=== PATIENT | male | born 1995 | race Caucasian/White ===

== ENCOUNTER 2018-05-29 14:35 | Inpatient (IN) | payer OTHER ==
[~2018-05-29] VITALS: Ht 188 cm; Wt 73.3 kg
[2018-05-29 14:56] VITALS: BP 131/64
[2018-05-29] MEDS ORDERED: HYDROXYZINE HCL10 M1 PO (14:58)
[2018-05-29] MEDS ORDERED: ZANTAC 150MG T150 MG PO (14:58)
[2018-05-29 15:00] LABS: URINE BILIRUBIN NEGATIVE (Negative); URINE BLOOD NEGATIVE (Negative); URINE CLARITY CLEAR; URINE COLOR YELLOW; URINE GLUCOSE-RANDOM NEGATIVE (Negative); URINE KETONES NEGATIVE (Negative); URINE LEUKOCYTES-REFLEX NEGATIVE (Negative); URINE NITRITE-REFLEX NEGATIVE (Negative); URINE PROTEIN NEGATIVE (Negative); URINE UROBILINOGEN 0.2 E.U./dl (0.2-1.0)
[2018-05-29 15:04] LABS: ABSOLUTE EOSINOPHILS 0.1 thou/uL (0.0-0.7); ABSOLUTE LYMPHOCYTES 1.4 thou/uL (0.8-5.3); ABSOLUTE MONOCYTES 0.6 thou/uL (0.0-1.2); ABSOLUTE NEUTROPHILS 8.1 thou/uL (1.6-8.1); BASOPHILS 0.4 %; EOSINOPHILS 0.7 %; HEMATOCRIT 48.9 % (42.0-52.0); HEMOGLOBIN 16.9 gm/dL (14.0-18.0); LYMPHOCYTES 13.8 %; MCH 28.3 pg (26.0-34.0); MCHC 34.6 g/dL (28.0-37.0); MCV 81.8 fL (80.0-100.0); MONOCYTES 5.6 %; MPV 8.7 fl. (7.2-11.1); NUCLEATED RBCS 0 /100WBC; PLATELET COUNT* 136 thou/uL (150-400); POLYS 79.5 %; RBC 5.98 mil/uL (4.50-6.00); RDW-CV 13.2 % (10.5-14.5); WBC 10.2 thou/uL (4.0-11.0)
[2018-05-29 15:12] LABS: CALCIUM 8.4 mg/dL (8.5-10.1); CREATININE 0.9 mg/dL (0.6-1.3); POTASSIUM 3.4 mmol/L (3.5-5.1)
[2018-05-29 15:17] LABS: ALBUMIN 4.4 g/dL (3.4-5.0); TOTAL BILIRUBIN 1.3 mg/dL (<0.1-1.0); TOTAL PROTEIN 7.8 g/dL (6.4-8.2)
[2018-05-29 19:00] VITALS: BP 127/66
[2018-05-30] VITALS: BP 122/54
[2018-05-30 04:00] VITALS: BP 111/44
[2018-05-30 08:14] VITALS: BP 107/52
[2018-05-30 11:16] VITALS: BP 107/52
[2018-05-30 12:00] VITALS: BP 112/38
[2018-05-30 19:40] VITALS: BP 125/72
[2018-05-31 04:00] VITALS: BP 96/54
[2018-05-31 07:53] VITALS: BP 116/65
[2018-05-31 10:27] VITALS: BP 116/65
[2018-05-31 10:28] VITALS: BP 116/65
[2018-05-31] MEDS ORDERED: LEVAQUIN 750 M750 MG PO (10:51)
[2018-05-31] MEDS ORDERED: ONDANSETRON HCL4 M2 PO (10:52)
[2018-05-31] MEDS ORDERED: TYLENOL325 MG PO (10:52)
--- NOTE | 2018-05-31 16:57 | EKG ---
[place] [address] ELECTROCARDIOGRAM REPORT Name: GILMAR FERREIRA Room: [address] IN [facility]#: [id number] Admission: 05/29/18 Attend Phys: Clay Gomez Discharge: 05/31/18 Date of : [birth year] Report #: [id number] THIS REPORT FOR: //name// [facility] ED Test Date: 2018-05-29 Test Time: 19:13:43 Pat Name: GILMAR FERREIRA Department: Room: [facility] Gender: M Bobj Developer: : 1995 Requested By: Jasen Horton Order Number: [id number] MD: Gilmar Ny Measurements Intervals [place] Rate: 56 P: 64 MD: 140 QRS: 111 QRSD: 109 T: 54 QT: 445 QTc: 430 Interpretive Statements Sinus rhythm Incomplete right bundle-branch block No previous ECG available for comparison Electronically Signed On 05-31-2018 16:57:07 CDT by Gilmar Ny [email or web address] <ELECTRONICALLY SIGNED> By: Gilmar Ny MD, [facility] 05/31/18 1657 12 12 Gilmar Ny MD, FACC /EPI
--- NOTE | 2018-06-03 11:09 | PATH ---
[address] [address] PATHOLOGY RPT PROCEDURE Name: GILMAR BOLES Room: [address] IN .R.#: [id number] Admission: 05/29/18 Date of : [birth year] Discharge: 05/31/18 Report #: [id number] Path Case #: [id number] [facility] Accession Number: [id number] . 01 Material submitted: . APPENDIX . 01 Clinical history: . Acute appendicitis . 02 Diagnosis: Appendix: - Acute appendicitis, periappendicitis and serositis (BRADLY:at;06/02/2018) QTA/06/03/2018 . 02 Electronically signed: . Magdi Garza MD, Pathologist NPI- [id number] . 01 Gross description: . The specimen is received in formalin, labeled "Gilmar Boles, appendix" and consists of an appendix measuring 7.4 cm in length and ranging from 0.5-0.8 cm in diameter with a small amount of mesoappendix measuring 2.5 x 0.5 cm. The serosa is mckee-dhillon and dusky with creeping adhesions/fat. Sectioning reveals a pinpoint to dilated lumen containing brown fecal material and no discrete fecaliths. Bead Supervisor sections are submitted in A1. (SDY; 06/01/2018) SYU/SYU . 02 Pathologist provided ICD-10: K35.80 . 02 CPT . 168703 Specimen Comment: A courtesy copy of this report has been sent to Specimen Comment: [phone], . Specimen Comment: Report sent to / DR POWELL Performed at: [facility] [address], [place], [place] [id number] MD Michael Starks MD Phone: [phone] Performed at: [address] [address] [place], [place] [id number] MD Magdi Garza MD Phone: [phone]
--- NOTE | 2018-06-05 09:32 | EEG ---
[address] [address] EEG STUDY REPORT Name: MORAIMA FERREIRA Room: [address] IN M.R.#: [id number] Admission: 05/29/18 Attend Phys: Clay Gomez Discharge: 05/31/18 Date of : [birth year] Report #: [id number] THIS REPORT FOR: //name// CC: ANAHY physician/PCP Anup [place] DATE OF SERVICE: 05/30/2018 This patient is being evaluated for an episode of syncope. EEG was done by placing the electrode by standard 10-20 system of electrode placement. Both referential and sequential montages were used for recording. The patient's background activity is about 10-11 Hz and 40 microvolts. The patient went to sleep that is associated with bilaterally symmetrical sleep spindle and vertex sharp waves. Photic stimulation is unremarkable. Throughout the record, no active epileptiform activity was noticed. IMPRESSION: This patient's EEG is within normal limit. Thank you very much for this referral. <ELECTRONICALLY SIGNED> By: Tom Mcarthur MD 06/05/18 0932 1145 1218Tom Mcarthur MD /nt
--- NOTE | 2018-07-02 15:37 | OP ---
[address] [address] OPERATIVE REPORT Name: MORAIMA FERREIRA Room: [address] IN .R.#: [id number] Admission: 05/29/18 Attend Phys: Clay Gomez Discharge: 05/31/18 Date of : [birth year] Report #: [id number] THIS REPORT FOR: //name// CC: ANAHY physician/PCP Anup [place] DATE OF SERVICE: 05/30/2018 PREOPERATIVE DIAGNOSIS: Acute appendicitis. POSTOPERATIVE DIAGNOSIS: Acute appendicitis. OPERATIVE PROCEDURE: Laparoscopic appendectomy. OPERATING SURGEON: Ede Mancuso MD. INDICATIONS FOR THE PROCEDURE: The patient is a 23-year-old male who presented with complaints of 1-day history of right lower quadrant pain that is benign. Clinical exam and CT scan showed features of acute appendicitis. The patient was advised laparoscopic appendectomy. The patient showed understanding and agreed to proceed. DESCRIPTION OF PROCEDURE: After explaining to the patient in detail, an informed consent was obtained. The patient was identified in the preoperative holding area. The patient was transferred to the operating room and was placed in supine position. Sequential compression devices were placed for DVT prophylaxis. Preoperative antibiotics were given. After induction of anesthesia, the abdomen was prepped and draped in a sterile fashion. Through a left upper quadrant stab incision and using a Veress needle technique, pneumoperitoneum was created. Thereafter, using Optiview technique through a left lower quadrant incision, a 5-mm trocar was introduced. A 12-mm trocar was placed through a supraumbilical incision and another 5-mm trocar was placed through a suprapubic incision approximately about 3 cm above the pubic symphisis On initial inspection, the patient was noted to have an inflamed appendix. The mesoappendix was divided. The appendicular artery was coagulated using cautery. Two Endoloops were then placed at the base of the appendix and 1 was placed distally. Appendix was then divided and was retrieved using an EndoCatch through the lateral most incision. Thorough saline irrigation was given. Absolute hemostasis was ensured. The appendix was then retrieved using an EndoCatch. The umbilical incision was closed in 2 layers using 0 Vicryl for the fascia. Skin was closed with 4-0 Monocryl for the incision. Dermabond was applied. The patient was stable at the end of the procedure, the patient was awoken from anesthesia and was transferred to the [place] [address] OPERATIVE REPORT Name: MORAIMA FERREIRA Room: [address]#: [id number] Admission: 05/29/18 Attend Phys: Clay Gomez Discharge: 05/31/18 Date of : [birth year] Report #: [id number] ESTIMATED BLOOD LOSS: Minimal. CONDITION: The patient is stable. FLUIDS: Given per Anesthesia note. SPECIMEN SENT: Appendix. COMPLICATIONS: None. ANESTHESIA: General anesthesia. <ELECTRONICALLY SIGNED> By: Ede Mancuso MD 07/02/18 1537 1716 1920Sigloria Mancuso MD /nt
== END 2018-05-31 12:06 | disposition home or self-care (01) | DRG 343 ==
LOC: M.ERS 14:35 → M.ORTHSURG 16:49 → M.TBA-ER 16:49 → M.2W 16:49 → M.ORTHSURG 19:00 → M.2W 21:16
PROVIDERS: Nurse Practitioner Family; ADMIT Internal Medicine
PROC: 0DTJ4ZZ Resection of Appendix, Percutaneous Endoscopic Approach (ICD-10-PCS; principal; 2018-05-30)
DX: K35.80 Unspecified acute appendicitis (principal); E87.6 Hypokalemia; R63.0 Anorexia; R55 Syncope and collapse; Z79.2 Long term (current) use of antibiotics; Z79.899 Other long term (current) drug therapy; Z88.1 Allergy status to other antibiotic agents; Z68.20 Body mass index [BMI] 20.0-20.9, adult

== ENCOUNTER 2019-08-06 15:30 | Emergency (ER) | payer OTHER ==
[~2019-08-06] VITALS: Ht 188 cm; Wt 72.1 kg
[~2019-08-06 15:30] MED LIST: HYDROXYZINE HCL10 M1 PO; LEVAQUIN 750 M750 MG PO; ONDANSETRON HCL4 M2 PO; TYLENOL325 MG PO; ZANTAC 150MG T150 MG PO
[2019-08-06] MEDS ORDERED: VENLAFAXINE H37.5 MG PO (15:43)
[2019-08-06] MEDS ORDERED: CARAFATE 1 GM TA1 G1 PO (15:43)
[2019-08-06 16:15] LABS: URINE BILIRUBIN NEGATIVE (Negative); URINE BLOOD NEGATIVE (Negative); URINE CLARITY CLEAR; URINE COLOR YELLOW; URINE GLUCOSE-RANDOM NEGATIVE (Negative); URINE KETONES NEGATIVE (Negative); URINE LEUKOCYTES-REFLEX NEGATIVE (Negative); URINE NITRITE-REFLEX NEGATIVE (Negative); URINE PROTEIN NEGATIVE (Negative); URINE SPECIFIC GRAVITY <= 1.005 (1.005-1.030); URINE UROBILINOGEN 0.2 E.U./dl (0.2-1.0)
[2019-08-06 16:17] LABS: ABSOLUTE EOSINOPHILS 0.1 thou/uL (0.0-0.7); ABSOLUTE MONOCYTES 0.3 thou/uL (0.0-1.2); ABSOLUTE NEUTROPHILS 4.2 thou/uL (1.6-8.1); BASOPHILS 0.6 %; EOSINOPHILS 2.2 %; HEMOGLOBIN 16.7 gm/dL (14.0-18.0); LYMPHOCYTES 17.7 %; MCH 28.4 pg (26.0-34.0); MCHC 35.6 g/dL (28.0-37.0); MCV 79.8 fL (80.0-100.0); MONOCYTES 5.5 %; MPV 8.3 fl. (7.2-11.1); NUCLEATED RBCS 0 /100WBC; PLATELET COUNT* 154 thou/uL (150-400); RBC 5.88 mil/uL (4.50-6.00); RDW-CV 12.8 % (10.5-14.5); WBC 5.7 thou/uL (4.0-11.0)
[2019-08-06 16:25] LABS: CALCIUM 8.8 mg/dL (8.5-10.1); CREATININE 0.8 mg/dL (0.6-1.3)
[2019-08-06 16:29] LABS: ALBUMIN 4.4 g/dL (3.4-5.0); TOTAL BILIRUBIN 0.6 mg/dL (<0.1-1.0); TOTAL PROTEIN 7.4 g/dL (6.4-8.2)
[2019-08-06] MEDS ORDERED: ATIVAN0.5 M1 PO (17:48)
[2019-08-06 18:05] VITALS: BP 119/73
== END 2019-08-06 18:06 | disposition home or self-care (01) ==
LOC: M.ERS 15:30
PROVIDERS: Nurse Practitioner Family
DX: F41.9 Anxiety disorder, unspecified (principal); R10.10 Upper abdominal pain, unspecified; Z88.1 Allergy status to other antibiotic agents; Z90.49 Acquired absence of other specified parts of digestive tract